=== PATIENT | female | born 1955 | race Hispanic/Latino ===

== ENCOUNTER 2018-02-06 11:48 | Emergency (ER) | payer MEDICAID, OTHER ==
[2018-02-06 11:48] VITALS: BMI 29.2
--- NOTE | 2018-02-06 12:36 | ED PDOC ---
HPI: Psych/Substance Abuse Time Seen by Provider: 02/06/18 12:15 Chief Complaint (Nursing): Psychiatric Evaluation Chief Complaint (Provider): Psychiatric Evaluation History Per: Patient History/Exam Limitations: no limitations Associated Symptoms: Depression, Suicidal Thoughts. denies: Suicidal Plan Additional Complaint(s): Patient is a 62 year old female who presents for psychiatric evaluation. Patient reports she's been feeling depressed for years but it has worsened this week. Patient reports she has suicidal thoughts, stating "I don't want to be here anymore". Patient denies a suicidal plan and states "I wanna hurt myself, but I never would". Reports a history of depression and anxiety. Patient denies HI, A/V hallucinations. Patient has no physical complaints. PMD: [facility] Past Medical History Reviewed: Historical Data, Nursing Documentation, Vital Signs - Medical History PMH: Anxiety, Arthritis (L KNEE), Depression, Diabetes (Type 2), HTN, Hypercholesterolemia - Surgical History Surgical History: Other surgeries: Left knee - Family History Family History: States: Unknown Family Hx - Social History Current smoker - smoking cessation education provided: No Alcohol: None Drugs: Denies - Home Medications Home Medications: Ambulatory Orders Medication Instructions Recorded RX: Glimepiride [amaRYL] 2 mg PO BID 03/13/17 RX: Pravastatin Sodium [Pravachol] 10 tab PO DAILY 03/13/17 RX: MetFORMIN [glucoPHAGE] 1,000 mg PO BID 04/18/17 RX: Aspirin [Ecotrin] 81 mg PO DAILY 09/06/17 RX: Hydrochlorothiazide [Microzide] 12.5 mg PO DAILY 09/06/17 Acetaminophen [Tylenol 325mg tab] 650 mg PO Q4 #50 tab 12/03/17 - Allergies Allergies/Adverse Reactions: Allergies Allergy/AdvReac Type Severity Reaction Status Date / Time Anesthetics - Amide Type Allergy Severe Verified 01/25/18 17:30 ibuprofen [From Motrin] Allergy Severe SWELLING Verified 01/25/18 17:30 morphine Allergy Severe ANAPHYLAXIS Verified 01/25/18 17:30 NSAIDS (Non-Steroidal Allergy Severe SWELLING Verified 01/25/18 17:30 Anti-Inflamma codeine Allergy Intermediate Verified 01/25/18 17:30 Review of Systems ROS Statement: Except As Marked, All Systems Reviewed And Found Negative Psych: Positive for: Depression, Other (suicidal thoughts with no plan) Physical Exam - Reviewed Nursing Documentation Reviewed: Yes Vital Signs Reviewed: Yes - Physical Exam Appears: Positive for: Non-toxic (Tearful, emotionally distraught), No Acute Distress Head Exam: Positive for: ATRAUMATIC, NORMOCEPHALIC Skin: Positive for: Normal Color, Warm, Dry Eye Exam: Positive for: Normal appearance ENT: Positive for: Other (Mucus membranes moist. Airway patent, (-) stridor.) Neck: Positive for: Painless ROM, Supple Cardiovascular/Chest: Positive for: Regular Rate, Rhythm Respiratory: Positive for: Normal Breath Sounds. Negative for: Respiratory Distress Gastrointestinal/Abdominal: Positive for: Soft. Negative for: Tenderness, Distended, Guarding Extremity: Positive for: Normal ROM Neurologic/Psych: Positive for: Alert, Oriented (x3), Mood/Affect (depressed), Gait (steady in ED). Negative for: Aphasia, Facial Droop Medical Decision Making Medical Decision Makin Initial Impression: Psychiatric evaluation, Depression Plan: -Crisis evaluation -Re-evaluation 1335 Per crisis evaluation, patient to be discharged with the diagnosis of Depression per Dr Oden. Patient was given a follow up appointment at the clinic. On exam, patient remains AAOx3, in no acute distress. Vitals stable. Lab /Diagnostic results d/w the patient in great detail. Diagnosis of depression d/w the patient. Based on history, exam and diagnostic results, plan will be for outpatient follow up as arranged by crisis. Patient instructed to follow-up with pmd / referral provided / the clinic in 1- 2 days without fail. Return to the emergency room at any time for any new or worsening symptoms. Patient states she fully agrees with and understands discharge instructions. States that she agrees with the plan and disposition. Verbalized and repeated discharge instructions and plan. I have given the patient opportunity to ask any additional questions. Disposition - Clinical Impression Clinical Impression: Depression - Patient ED Disposition Is Patient to be Admitted: No Counseled Patient/Family Regarding: Studies Performed, Diagnosis, Need For Followup - Disposition Referrals: [facility] [Outside] [facility] [Other] Disposition: Routine/Home Disposition Time: 13:40 Condition: STABLE Additional Instructions: The emergency medical care you received today was directed at your acute symptoms. If you were prescribed any medication, please fill it and take as d irected. It may take several days for your symptoms to resolve. Return to the Emergency Department if your symptoms worsen, do not improve, or if you have any other problems. Please contact your doctor in 2 days for re-evaluation and follow up / or call one of the physicians/clinics you have been referred to that are listed on the Patient Visit Information form that is included in your discharge packet. Bring any paperwork you were given at discharge with you along with any medications you are taking to your follow up visit. Our treatment cannot replace ongoing medical care by a primary care provider (PCP) outside of the emergency department. Instructions: Depression, When You Have Depression and Another Health Problem, Tips for How to Help Your Mood Forms: [facility] (Yoruba) Print Language: MOLDOVAN - POA Present On Arrival: None
[2018-02-06 13:42] VITALS: BP 124/81; PULSE 79; RESP 16; TEMP 98.5; O2SAT 100
== END 2018-02-06 13:42 | disposition home or self-care (01) ==
LOC: H.ER 11:48
DX: F32.9 Major depressive disorder, single episode, unspecified (principal); E11.9 Type 2 diabetes mellitus without complications; I10 Essential (primary) hypertension; Z13.31 Encounter for screening for depression; Z79.84 Long term (current) use of oral hypoglycemic drugs; Z88.6 Allergy status to analgesic agent